=== PATIENT | female | born 1970 | race Caucasian/White ===

== ENCOUNTER 2017-01-19 20:59 | Emergency (ER) | payer OTHER ==
[~2017-01-19] VITALS: Ht 170.2 cm; Wt 100.0 kg
[~2017-01-19 20:59] MED LIST: ASPI-973 PO; DIAZ5TAB3 PO
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
[2017-01-19 21:14] VITALS: BP 135/91; PULSE 70; RESP 20; O2SAT 96
--- NOTE | 2017-01-19 21:14 | DRSVH ---
PROCEDURE: CT BRAIN (TPA) ([id number]) INDICATIONS: left side weakness, previous cva TECHNIQUE: Noncontrast 4.5 mm thick angled axial sections acquired from the foramen magnum to the vertex, with c oronal reformats. COMPARISON: None. FINDINGS: Image quality: Excellent. CSF spaces: Basal cisterns are patent. No extra-axial fluid collections. Ventricles are normal in size and shape. Brain: No midline shift. No intracranial masses or hemorrhage. Mccullough-white matter interface is norm al. Skull and face: Calvarium and visualized facial bones are intact, without suspicious lesions. Sinuses: Visualized sinuses and mastoids are clear. IMPRESSION: 1. No acute intracranial findings. These findings were discussed with Dr. Farfan at 9:12 PM on 01/19/17. This study fulfills neurological imaging criteria for inclusion or exclusion of acute stroke therapie s based on available published neurological imaging guidelines. Dictated by: Belinda Pina M.D. on 01/19/2017 at 21:09 Approved by: Belinda Pina M.D. on 01/19/2017 at 21:12
[2017-01-19] MEDS ORDERED: Alteplase (No Charge) 1 mg/mL Syringe IV ONE (21:55)
[2017-01-19] MEDS ORDERED: ALTEPLASE IV ONE (21:55)
[2017-01-19] MEDS ORDERED: Acetaminophen IV 1,000 MG in IV Premix 1 EACH IV ONE (22:10)
[2017-01-19 22:16] LABS: BASOPHILS % (AUTO) 0.5 % (0-3); MONOCYTES % (AUTO) 10.8 % (4-12); Mean Corpuscular Hemoglobin 29.7 pg (27.0-35.0); Mean Corpuscular Volume 89.3 fL (81-100); NEUTROPHILS % (AUTO) 55.7 % (40-74); Platelet Count 289 bil/L (150-400)
[2017-01-19 22:23] LABS: INR 0.9 ratio
[2017-01-19 22:51] VITALS: BP 144/77; PULSE 66; RESP 18; O2SAT 97
[2017-01-19 23:02] VITALS: BP 144/77; PULSE 72; RESP 20; O2SAT 98
== END 2017-01-19 22:55 | disposition short-term general hospital (02) ==
LOC: SED 20:59
DX: I63.511 Cerebral infarction due to unspecified occlusion or stenosis of right middle cerebral artery (principal); I10 Essential (primary) hypertension; Z86.73 Personal history of transient ischemic attack (TIA), and cerebral infarction without residual deficits; Z79.82 Long term (current) use of aspirin; Z95.0 Presence of cardiac pacemaker; Z88.0 Allergy status to penicillin; Z88.8 Allergy status to other drugs, medicaments and biological substances
CPT/HCPCS: 36415; 37195; 70450; 80053; 84484; 85025; 85610; 85730; 86850; 93005; 96374; 96375; 99291; G0480; J0131; J2997

== ENCOUNTER 2017-03-19 14:20 | Inpatient (IN) | payer OTHER ==
[2017-03-19] VITALS (9 sets, daily range): BP systolic 122–144; BP diastolic 70–87; PULSE 60–86; RESP 15–24; O2SAT 96–99
[~2017-03-19] VITALS: Ht 167.6 cm; Wt 128.1 kg
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
[2017-03-19] MEDS ORDERED: HYDROmorphone 0.5 mg/0.5 mL iSecure Syringe IVPUSH ONE (14:35)
[2017-03-19] MEDS ORDERED: Ondansetron 2 mg/mL 2 mL Inj IVPUSH ONE (14:35)
[2017-03-19 14:46] LABS: BASOPHILS % (AUTO) 0.3 % (0-3); EOSINOPHILS % (AUTO) 2.8 % (0-5); Mean Corpuscular Hemoglobin 29.6 pg (27.0-35.0); Mean Corpuscular Volume 89.8 fL (81-100); NEUTROPHILS % (AUTO) 60.4 % (40-74); Platelet Count 280 bil/L (150-400)
--- NOTE | 2017-03-19 14:51 | DRSVH ---
PROCEDURE: X-RAY CHEST ONE VIEW, PORTABLE ([id number]) INDICATIONS: CHEST PAIN TECHNIQUE: One view of the chest was acquired. COMPARISON: [facility], , CHEST 1VW (PORTABLE), 06/02/2014, 15:50. FINDINGS: Surgical changes and devices: Cardiac pacer/defibrillator brevis is seen overlying the left chest. Lungs and pleura: No pleural effusions or pneumothorax. Lungs are clear. Mediastinum: Mediastinal contours appear normal. Heart size is normal. Bones and chest wall: No suspicious bony lesions. Overlying soft tissues appear unremarkable. IMPRESSION: Negative chest. No acute cardiopulmonary process is evident. Dictated by: Eduardo Regalado M.D. on 03/19/2017 at 13:49 Approved by: Eduardo Regalado M.D. on 03/19/2017 at 13:49
[2017-03-19 15:17] LABS: TROPONIN T < 0.010 ug/L (0.0-0.011)
[2017-03-19 15:22] LABS: Magnesium 1.9 mg/dL (1.6-2.6)
[2017-03-19] MEDS ORDERED: HYG25 PO (15:58)
[2017-03-19] MEDS ORDERED: AMLO5TAB2 PO (15:58)
[2017-03-19] MEDS ORDERED: TOPI-59 PO (15:58)
[2017-03-19] MEDS ORDERED: Ondansetron 2 mg/mL 2 mL Inj IVPUSH PRN (16:30)
[2017-03-19] MEDS ORDERED: Alum-Mag Hydrox-Simeth 30 mL Suspension PO PRN ×2 (16:30→16:50)
[2017-03-19] MEDS ORDERED: Polyethylene Glycol (PEG) 17 Gm Powder PO PRN (16:50)
--- NOTE | 2017-03-19 17:41 | NUR ---
Admission Patient admitted to the floor at 1650. Admit questions and med list accomplished by admit nurse. Patient complained of 6/10 chest pain more so when patient breaths. EKG, Trops, X-ray, D-dimer all neg. DO ordered Pulse Ox overnight for screening for ADRYAN. Oriented patient to the room, placed bed in lowest position and call light within reach.
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
[2017-03-20] VITALS (8 sets, daily range): BP systolic 119–158; BP diastolic 75–99; PULSE 60–64; RESP 16–22; O2SAT 94–97
[2017-03-20] MEDS: Heparin 5,000 Unit/mL Inj SUBQ SCH ×3 (00:20→16:47)
[2017-03-20 02:08] LABS: Mean Corpuscular Hemoglobin 29.7 pg (27.0-35.0); Mean Corpuscular Volume 90.3 fL (81-100)
[2017-03-20 02:25] LABS: INR 0.95 ratio
--- NOTE | 2017-03-20 04:19 | NUR ---
PAIN At start of shift, pt c/o "7" chest pain at rest, "9" with activity. Pt states tenderness to touch. Pt states that tylenol is not effective for pain relief. Pt currently did not have any prn pain medications ordered. Noc hospitalist called, rec'd orders for prn IV morphine, dose given. When reassessed, pt states pain in chest "is better", pt rates chest pain "4". Continue to monitor. Call light in reach. Pt daughter in room. Intentional rounding.
[2017-03-20] MEDS: Ondansetron 2 mg/mL 2 mL Inj IVPUSH PRN (08:28)
--- NOTE | 2017-03-20 16:36 | PCM.PNMED ---
Subjective Date of Service Mar 20, 2017 Subjective complains of headache today. Also reports chest pain when walking to bathroom but improves with rest Exam Vital Signs Vital Sign - Last Date Time Temp Pulse Resp B/P Pulse Ox O2 Delivery O2 Flow Rate FiO2 03/20/17 13:08 36.8 64 17 142/86 94 Room Air Intake and Output 03/19/17 03/19/17 03/20/17 Cumulative From/Thru 15:00 23:00 07:00 03/19/17 14:24 - 03/20/17 06:34 Intake Total 450 ml 450 ml Output Total 1050 ml 1050 ml Balance -600 ml -600 ml Intake Oral 450 ml 450 ml Output Urine Total 1050 ml 1050 ml General: Alert, Cooperative, No Acute Distress Head: Normal Eyes: Scleral Anicteric Nose: Mucous Membr Moist/[place] Mouth: Mucous Membr Moist/[place] Neck: Supple Chest & Lungs: Chest Wall Normal, Clear to auscultation & percussion Cardiovascular: Regular Rate/Rhythm Abdomen: Non-tender, Non-distended, Normoactive bowel tones, Soft Extremities: No cyanosis/clubbing/edma bilat Neurological: Grossly Neurologically Intact, Normal Speech IVs and Medications Medications Reviewed: Medications were reviewed in detail Lab and Diagnostics Result Diagram: 03/20/17 02003/20/17 0200 X-Rays, CTs and MRIs PROCEDURE: X-RAY CHEST ONE VIEW, PORTABLE ([id number]) INDICATIONS: CHEST PAIN IMPRESSION: Negative chest. No acute cardiopulmonary process is evident. Dictated by: Eduardo Regalado M.D. on 03/19/2017 at 13:49 Assessment & Plan 46-year-old obese female with a medical history significant for CVA, TIA, valvular heart disease, and bradycardia with pacer presented with acute chest pain # Acute chest pain. Present on admission. - Ruled out for acute myocardial infarction with negative Trop x 3 - EKG without acute ST changes - Followup pending echo result - Followup pending cardiac stress test - ? if chest pain partially due to musculoskeletal pain given somewhat reproducible with palpation. Will start Ibuprofen and follow - Continue with ASA and Lipitor - Continue IV Morphine prn # Chronic Hypertension. Stable. - Continue with home dose Amlodipine and Chlorthalidone - Consider adding lisinopril # Probable sleep apnea - Will need further workup as outpatient # Acute headache. Present after admission. Ongoing - ? if side effect of Nitro or Morphine - Continue with supportive care - Tylenol prn for now # History of CVA/TIA. Currently stable - Continue with home meds Dispo: 1-2 days pending above workup GI Prophylaxis: Not indicated VTE Prophylaxis: Sub-Q Heparin (Unfractionated) VTE Mechanical Devices: Intermittant Pneumatic CD Resuscitation Status: CPR: Attempt Resuscitation Johnny Romero Mar 20, 2017 16:36
--- NOTE | 2017-03-20 18:08 | DRSVH ---
[facility] [address] [facility] [facility] [place] [address] Echocardiogram Report Name: JIM SIEGEL LStudy Date: 03/20/2017 Height: 66 in Hospital Exam Location: [facility] Weight: 282 lb Gender: Female BSA: 2.3 m2 : 1970 Age: 46 yrs BP: 122/75 mmHg Reason For Study: Chest pain History: PFO REPAIR Ordering Physician: Performed By: Maryjane Farley Interpretation Summary 1. Normal left ventricular size and wall thickness with an estimated EF of 45 to 50% 2. Upper limits of normal right ventricular size with normal systolic function. The estimated RVSP is 41 mm Hg 3. No evidence for significant valvular pathology 4. Evidence for a flow of bubbles into the left atrium at about 6 beats after injection - consider residual atrial septal communication versus pulmonary AVM Compared to the previous study (images reviewed) - the LV function may be slightly reduced. The estimated right atrial pressure is higher. Procedure: A two-dimensional transthoracic echocardiogram with color flow and Doppler was performed. The study quality was technically adequate. A contrast injection of Definity was performed to improve assessment of LV function. A saline contrast injection was performed to assess for cardiac shunting. Comparison is made with the echocardiogram of 03/12/2013. The patient has a paced rhythm. Left Ventricle: The left ventricle is normal in size. There is normal left ventricular wall thickness. The ejection fraction is estimated to be 45-50%. Right Ventricle: There is a pacemaker lead in the right ventricle. Upper limits of normal RV size. The right ventricular systolic function is normal. Atria: The left atrium is mildly dilated. Right atrial size is normal. The bubble study shows a flood of bubbles into the left heart 6 beats after injection. Possible PFO closure failure vs pulmonary AVM. Color Doppler does not suggest PFO; however, subcostal views were unobtainable due to lack of visualization of heart. Mitral Valve: The mitral valve is normal in structure and function. There is trace mitral regurgitation. Aortic Valve: The aortic valve is trileaflet. The aortic valve opens well. No aortic regurgitation is present. Tricuspid Valve: The tricuspid valve leaflets are thin and pliable. There is mild tricuspid regurgitation. The right ventricular systolic pressure is estimated at 41 mmHg assuming a right atrial pressure of 15 mm Hg. Pulmonic Valve: The pulmonic valve is not well seen, but is grossly normal. There is no pulmonic valvular regurgitation. Great Vessels: The aortic root is normal size. The ascending aorta is at the upper limits of normal in size. The aortic arch is at the upper limits of normal in size. The IVC is dilated (diameter is greater than 2.1 cm) and it collapses less than 50% with a sniff. This suggests a high right atrial pressure of 15 mm Hg. MMode/2D Measurements & Calculations LVIDd: 5.4 cm LA A2 area RA long axis: 5.9 cm LVOT diam: 2.2 cm LVIDs: 3.5 cm Ao root diam: 3.3 cm FS: 35.2 % RA area: 17.8 cm Aortic Jxn: 2.7 cm EPSS: 1.1 cm LA A4 area RA vol: 45.4 ml asc Aorta Diam: 3.4 cm IVSd: 0.82 cm RA : 19.6 ml/m2 Ao Arch Diam (Prox LVPWd LA length (vol) Trans): 3.2 cm : 1.0cm LA vol: 67.3 ml LA vol index IVC diam: 2.6 cm LVAd ap4 LVAd ap2 LV son. diameter/BSA LV sys. diameter/BSA : 29.7 2m : 22.4 cm (cm/m^2): 2.4 (cm/m^2): 1.5 LVLd ap2: 6.7 cm EDV(MOD-sp2) EDV(sp2-el) : 64.5 ml RVD1 (basal) RVD2 (mid) TAPSE: 2.5 cm : 3.2 cm Doppler Measurements & Calculations Ao V2 max MV E max yusuf MV E/A: 1.2 TR max yusuf : 143.5 cm/sec : 89.9 cm/sec Med Peak E' Yusuf : 252.6 cm/sec Ao max PG MV A max yusuf TR max PG : 8.2 mmHg : 76.1 cm/sec E/E' med: 12.8 : 25.5 mmHg Ao mean PG MV P1/2t: 60.8 msec Lat Peak E' Yusuf PA V2 max : 63.6 cm/sec LVOT Max Yusuf E/E' lat: 10.3 PA mean PG : 86.3 cm/sec E/e' average : 0.84 mmHg ERICA(I,D): 2.6 cm PA Accel Time sev ratio : 0.16 sec MV dec time MV P1/2t max yusuf Ao V2 mean LV V1 max PG : 0.21 sec : 89.2 cm/sec MVA(P1/2t): 3.6 cm2 Ao V2 VTI: 30.1 cm LV V1 VTI ERICA(V,D): 2.2 cm2 : 21.5 cm PA V2 mean ERICA indexed to BSA : 42.7 cm/sec (cm^2/m^2): 1.1 Reading Physician:06:07 PM
[2017-03-21] VITALS (11 sets, daily range): BP systolic 108–158; BP diastolic 63–89; PULSE 60–73; RESP 16–22; O2SAT 94–100
[2017-03-21] MEDS: Heparin 5,000 Unit/mL Inj SUBQ SCH ×3 (00:58→16:51)
--- NOTE | 2017-03-21 05:21 | NUR ---
PAIN Pt continues to have pain. Chest pain, increased w/ activity. Pt primarily reports headache pain. PRN tylenol and ibuprofen helps to alleviate pain. Pt avoiding IV morphine, as it contributes to headache. Pt tolerating activity to BR better than previous night. Continue to monitor. Call light in reach. Intentional rounding.
--- NOTE | 2017-03-21 09:10 | NUR ---
Off unit: Pt off unit for stress test at 0830
--- NOTE | 2017-03-21 10:57 | NUR ---
Social Work- Screening/Readiness for D/C Data: EMR reviewed. Pt is a 46 year old female admitted for chest pain per H&P. Pt's insurance is [employer]. Pt's PCP is listed as Other. Pt discussed in multidisciplinary rounds. Pt is likely to d/c today pending stress test. No SW needs identified in rounds. SW attempted to meet with pt at bedside regarding d/c planning but she was off the floor for her stress test. Per chart review pt is independent at baseline and capable of self-care. No concerns related to pt's capacity for self-care mentioned in rounds. Pt likely to d/c home with family via POV. No d/c needs. SW will follow if d/c needs arise. Assessment: Pt who is independent with ADLs and self-care Plan: Pt likely to d/c home with family via POV. No d/c needs. SW will follow if d/c needs arise. Lyric Johnson, PHARMACIST
[2017-03-21] MEDS: Ondansetron 2 mg/mL 2 mL Inj IVPUSH PRN (11:24)
--- NOTE | 2017-03-21 15:51 | NUR ---
NURSING DAYS 7-7 Patient failed am stress test, became dizzy, n/v, diaphoretic, and BP fell to "double digits". Patient will do resting image stress test tomorrow at 1000, NPO at midnight, no caffeine. Patient c/o headache Tylenol and Ibuprofen given, patient state she has slight chest pain on trip to bathroom, "not feeling herself" and has hot/cold flashes, made aware. Trop (-), telemetry A-paced 60,
--- NOTE | 2017-03-21 17:36 | PCM.PNMED ---
Subjective Date of Service Mar 21, 2017 Subjective Reports feeling "worse" after stress test earlier today. complains of headache. Also chest pain when walking to bathroom Exam Vital Signs Vital Sign - Last Date Time Temp Pulse Resp B/P Pulse Ox O2 Delivery O2 Flow Rate FiO2 03/21/17 16:57 36.7 60 16 125/85 96 Room Air Intake and Output 03/20/17 03/20/17 03/21/17 Cumulative From/Thru 15:00 23:00 07:00 03/19/17 14:24 - 03/21/17 05:46 Intake Total 2127 ml 200 ml 2777 ml Output Total 1850 ml 650 ml 3550 ml Balance 277 ml -450 ml -773 ml Intake Oral 900 ml 200 ml 1550 ml IV Total 1227 ml 1227 ml Output Urine Total 1850 ml 650 ml 3550 ml # Voids 4 1 5 Exam General: Alert, Cooperative, No Acute Distress Head: Normal Eyes: Scleral Anicteric Nose: Mucous Membr Moist/[place] Mouth: Mucous Membr Moist/[place] Neck: Supple Chest & Lungs: Chest Wall Normal, Clear to auscultation bilat Cardiovascular: Regular Rate/Rhythm Abdomen: Non-tender, Non-distended, Normoactive bowel tones, Soft Extremities: No cyanosis/clubbing/edema bilat Neurological: Grossly Neurologically Intact, Normal Speech IVs and Medications Medications Reviewed: Medications were reviewed in detail Lab and Diagnostics Result Diagram: 03/20/17 0200 03/20/17 0200 X-Rays, CTs and MRIs PROCEDURE: X-RAY CHEST ONE VIEW, PORTABLE ([id number]) INDICATIONS: CHEST PAIN IMPRESSION: Negative chest. No acute cardiopulmonary process is evident. Dictated by: Eduardo Regalado M.D. on 03/19/2017 at 13:49 Assessment & Plan 46-year-old obese female with a medical history significant for CVA, TIA, valvular heart disease, and bradycardia with pacer presented with acute chest pain # Acute chest pain. Present on admission. - Ruled out for acute myocardial infarction with negative Trop x 3 - EKG without acute ST changes - Echo with findings as noted above - Followup pending cardiac stress test result - ? if chest pain partially due to musculoskeletal pain given somewhat reproducible with palpation. Continue Ibuprofen = - Continue with ASA and Lipitor - Continue IV Morphine prn - Consider cardiology consult in AM pending final stress test result. # Chronic Hypertension. Stable. - Continue with home dose Amlodipine and Chlorthalidone - Consider adding lisinopril # Probable sleep apnea - Will need further workup as outpatient # Acute headache. Present after admission. Ongoing - ? if side effect of Nitro or Morphine - Continue with supportive care - Tylenol prn for now # History of CVA/TIA. Currently stable - Continue with home meds Dispo: 1-2 days pending above workup GI Prophylaxis: Not indicated VTE Prophylaxis: Sub-Q Heparin (Unfractionated) VTE Mechanical Devices: Intermittant Pneumatic CD Resuscitation Status: CPR: Attempt Resuscitation Johnny Romero Mar 21, 2017 17:35
--- NOTE | 2017-03-21 23:52 | NUR ---
Chest pressure: Pt reported feeling like someone was "sitting on my chest" while up to the bathroom. Reports shortness of breath "due to the pain" and some dizziness so pt was placed on 2L NC; RA pt was 97%. Denies nausea. Reports headache she had earlier is gone. Pain was at a 7/10, after resting in bed it decreased to 5/10 without intervention. EKG was obtained and IV medication administered for the chest pain. The chest pain gradually subsided, gone 35-40 minutes after medication given. 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
[2017-03-22] VITALS (8 sets, daily range): BP systolic 114–148; BP diastolic 68–83; PULSE 60–67; RESP 16–20; O2SAT 96–99
[2017-03-22] MEDS: Heparin 5,000 Unit/mL Inj SUBQ SCH ×3 (01:20→16:25)
[2017-03-22 07:11] LABS: Magnesium 1.9 mg/dL (1.6-2.6)
--- NOTE | 2017-03-22 08:36 | NUR ---
CORTEZ/off unit Pt off unit at this time for resting stress test. Medicated with IV morphine for CORTEZ 02/01 prior to leaving. Tele notified of pt leaving. IV is SL. Addendum: 03/22/17 at 0901 by AMAN DELGADO RN Pt back on unit now. states CORTEZ to be a 11/02 now. Tele monitoring in place, tech notified
--- NOTE | 2017-03-22 10:04 | PCM.PNMED ---
Subjective Date of Service Mar 22, 2017 Subjective Says feeling better today. Denies any new issues/complaints Exam Vital Signs Vital Sign - Last Date Time Temp Pulse Resp B/P Pulse Ox O2 Delivery O2 Flow Rate FiO2 03/22/17 09:36 36.7 60 20 117/83 98 Room Air 03/22/17 00:39 2.00 Intake and Output 03/21/17 03/21/17 03/22/17 Cumulative From/Thru 15:00 23:00 07:00 03/19/17 14:24 - 03/22/17 04:42 Intake Total 886 ml 3663 ml Output Total 925 ml 4475 ml Balance -39 ml -812 ml Intake Oral 886 ml 2436 ml IV Total 1227 ml Output Urine Total 925 ml 4475 ml # Voids 5 Exam General: Alert, Cooperative, No Acute Distress Head: Normal Eyes: Scleral Anicteric Nose: Mucous Membr Moist/[place] Mouth: Mucous Membr Moist/[place] Neck: Supple Chest & Lungs: Chest Wall Normal, Clear to auscultation bilat Cardiovascular: Regular Rate/Rhythm Abdomen: Non-tender, Non-distended, Normoactive bowel tones, Soft Extremities: No cyanosis/clubbing/edema bilat Neurological: Grossly Neurologically Intact, Normal Speech IVs and Medications Medications Reviewed: Medications were reviewed in detail Lab and Diagnostics Result Diagram: 03/20/17 0200 03/22/17 0630 X-Rays, CTs and MRIs PROCEDURE: X-RAY CHEST ONE VIEW, PORTABLE ([id number]) INDICATIONS: CHEST PAIN IMPRESSION: Negative chest. No acute cardiopulmonary process is evident. Dictated by: Eduardo Regalado M.D. on 03/19/2017 at 13:49 Assessment & Plan 46-year-old obese female with a medical history significant for CVA, TIA, valvular heart disease, and bradycardia with pacer presented with acute chest pain # Acute chest pain. Present on admission. - Ruled out for acute myocardial infarction with negative Trop x 3 - EKG without acute ST changes - Echo with findings as noted above - Followup pending cardiac stress test result today - ? if chest pain partially due to musculoskeletal pain given somewhat reproducible with palpation. Continue Ibuprofen - Continue with ASA and Lipitor - Continue IV Morphine prn - Cardiology consult today for consideration of cath vs other intervention given ongoing chest pain with exertion # Chronic Hypertension. Stable. - Continue with home dose Amlodipine and Chlorthalidone - Consider adding lisinopril # Probable sleep apnea - Will need further workup as outpatient # Acute headache. Present after admission. Improving. - ? if side effect of Nitro or Morphine - Continue with supportive care - Tylenol prn for now # History of CVA/TIA. Currently stable - Continue with home meds Dispo: 1-2 days pending above workup GI Prophylaxis: Not indicated VTE Prophylaxis: Sub-Q Heparin (Unfractionated) VTE Mechanical Devices: Venous Foot Pump Resuscitation Status: CPR: Attempt Resuscitation Johnny Romero Mar 22, 2017 10:04
--- NOTE | 2017-03-22 10:57 | DRSVH ---
PROCEDURE: 2 DAY STRESS TEST Rest and pharmacological stress myocardial perfusion SPECT with gated imaging and ejection fraction RADIOPHARMACEUTICAL: 21.9 mCi Tc-99m tetrafosmin IV at rest and 21.7 mCi Tc-99m tetrafosmin IV at pea k effect of pharmacological stress. [id number] was performed. INDICATIONS: 46 year-old woman with chest pain. The patient has history of hypertension, hyperkalemia and a valvular heart disease. TECHNIQUE: Radiopharmaceutical was injected at peak stress test, and also at rest. SPECT images wer e obtained. SPECT myocardial perfusion images were displayed in short axis, horizontal long axis, an d vertical long axis views. Gated images were reviewed using [employer] software. COMPARISON: [facility], [place], MYOCARD PERF SPECT MULT, 12/26/2009, 13:58. CARDIAC STRESS: A pharmacologic stress test was performed under the supervision of an attending staff, using an infus ion of Lexiscan. Hemodynamic data: There is normal blood pressure and heart rate response to pharmacologic stress. Symptoms: The patient denied anginal chest pain. Aminophylline: 100 mg IV EKG: Nonspecific ST changes. No diagnostic changes of ischemia; no ectopy. FINDINGS: Raw data: There is good myocardial uptake of radiotracer. No significant motion artifacts. Left ventricle function: Gated images demonstrate normal left ventricular wall thickening. No segme ntal wall motion abnormalities. No transient ischemic dilation. Left ventricle resting end diastoli c volume is normal. Left ventricle stress ejection fraction is 54%; normal range is above 45%. Myocardial perfusion: There is a small, mild, fixed defect in the apex, most likely secondary to api rodríguez thinning. There is a large area of mildly decreased activity in anterior wall, which is probably caused by breast attenuation artifact. No reversible perfusion defects to suggest myocardial ischemia . Comparison to prior examinations: Compared to the last exam on 12/27/2009, there is no significant bell nge. IMPRESSION: 1. Probably normal myocardial perfusion images. No convincing evidence for myocardial ischemia or inf arct. 2. Normal left ventricular volume and systolic function. 3. No chest pain or diagnostic EKG changes for ischemia. PQRS ATTESTATIONS: Measure 322 - Is this imaging test primarily performed on a low-risk surgery patient for preoperative evaluation within 30 days preceding their low-risk non-cardiac surgery? Low-risk surgery is defined as cardiac or myocardial infarction less than 1%, including (but not limited to) endoscopic pr ocedures, superficial procedures, cataract surgery, and excisional breast surgery: Answer: No Measure 323 - Is this imaging test performed primarily for the monitoring of an asymptomatic patient who had percutaneous coronary intervention on the visit date or within 2 years of the visit date? An swer: No Measure 324 - Is this imaging test performed primarily for the initial detection and risk assessment on an asymptomatic, low coronary heart disease patient? Low CHD risk definition = clinicians should consider the maximum number of available patient factors used to estimate risk based on [place] (A TP III criteria), typically age, gender, diabetes, smoking status, and use of blood pressure medicati on, and integrate age appropriate estimates for missing elements, such as LDL or standard blood press ure. Answer: No Dictated by: Jeremy Zheng M.D. on 03/22/2017 at 10:42 Approved by: Jeremy Zheng M.D. on 03/22/2017 at 10:55
--- NOTE | 2017-03-22 13:15 | NUR ---
CT pt off unit at [address] for PE study. Pt denied pain. Tele notified. Addendum: 03/22/17 at 1838 by AMAN DELGADO RN Pt was back by 1330, connected back to tele.
--- NOTE | 2017-03-22 13:32 | DRSVH ---
PROCEDURE: CT ANGIO CHEST PULMONARY EMBOLISM ([id number]) INDICATIONS: Chest pain, SOB, leg swelling, hx DVT TECHNIQUE: After the administration of intravenous contrast, 2 mm thick sections acquired from the pulmonary api ginny to the posterior costophrenic angles. 3-dimensional maximum intensity projection (MIP) coronal a nd sagittal reformats were then acquired through the thorax. For radiation dose reduction, the follo wing was used: automated exposure control, adjustment of mA and/or kV according to patient size. COMPARISON: [facility], [place], CHEST W/O CONTRAST, 05/19/2007, 19:39. FINDINGS: Image quality: Excellent. Pulmonary arteries: Pulmonary arteries are normal in size, and demonstrate no intraluminal filling d efects to suggest central pulmonary embolism. Lungs and pleura: No pleural effusions or pneumothorax. Central and peripheral airways are patent. 5 mm anterior right upper lobe nodule is present on series 5 image 8. It is noted that it was present on the 05/19/07 exam, at which time it measured 2 mm. Mediastinum: Heart size is normal, without pericardial effusion. No mediastinal or hilar adenopathy . Thoracic aorta is normal in caliber and enhancement. Esophagus is normal in caliber, without hiat al hernia. Bones and chest wall: No suspicious bony lesions. Ribs and thoracic spine appear intact throughout. Thyroid gland is unremarkable. No axillary or supraclavicular adenopathy. Abdomen: Left adrenal nodule is unchanged. Otherwise, visualized upper abdominal solid organs appear normal in the early arterial phase of enhancement. IMPRESSION: 1. No evidence of pulmonary embolism. 2. 5 mm nodule in the right upper lobe as described above. It is noted that it has increased in size since 2006. Given the slow rate of growth, neoplasm is felt to be highly unlikely. However, one year interval followup is recommended. Dictated by: Mansi Khoury M.D. on 03/22/2017 at 13:23 Approved by: Mansi Khoury M.D. on 03/22/2017 at 13:30
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
[2017-03-22] MEDS ORDERED: Ketorolac 15 mg/mL Inj IVPUSH ONE (16:35)
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
--- NOTE | 2017-03-22 18:38 | DRSVH ---
PROCEDURE: US VENOUS LEG DUPLEX BILATERAL INDICATIONS: Right and left leg pain, left leg swelling. R/O DV TECHNIQUE: Real-time imaging, as well as color and pulse Doppler interrogation, were performed of the deep veins of both legs from the inguinal ligament to the popliteal fossa. COMPARISON: None. FINDINGS: The deep veins are normally compressible, and free of intraluminal thrombus. Color and pu lse Doppler demonstrate normal phasic intravascular flow. There is normal augmentation response to d istal compression maneuver. IMPRESSION: No deep vein thrombosis of the bilateral lower extremities. Dictated by: Belinda Pina M.D. on 03/22/2017 at 18:36 Approved by: Belinda Pina M.D. on 03/22/2017 at 18:36
--- NOTE | 2017-03-22 18:38 | NUR ---
Pain meds Pt states the 1x IV Toradol was more effective than IV Morphine. Note sent to MD to possibly get the Rx changed.
[2017-03-22] MEDS ORDERED: Ketorolac 15 mg/mL Inj IVPUSH PRN (18:55)
[2017-03-23] MEDS: Heparin 5,000 Unit/mL Inj SUBQ SCH ×2 (01:18→08:30)
[2017-03-23 01:22] VITALS: BP 112/71; PULSE 60; RESP 16; O2SAT 95
[2017-03-23 05:06] VITALS: BP 115/72; PULSE 61; RESP 16; O2SAT 98
--- NOTE | 2017-03-23 06:29 | NUR ---
Night note: No chest pain through the night. Was medicated once this morning for a head ache. Was able to sleep most of the night.
[2017-03-23 08:16] VITALS: BP 112/77; PULSE 60; RESP 16; O2SAT 96
--- NOTE | 2017-03-23 11:14 | PCM.DIMED ---
Discharge Instructions Date of Service Mar 23, 2017 Dates of Hospitalization Mar 19, 2017 at 16:09 Discharge Diagnosis Discharge Diagnosis # Acute chest pain. Present on admission. Resolved - Ruled out for acute myocardial infarction with negative Trop x 3 - Cardiac stress test on 03/21/17: "Probably normal myocardial perfusion images. No convincing evidence for myocardial ischemia or infarct." - Chest pain likely due to musculoskeletal pain # Chronic Hypertension. Stable. # Possible sleep apnea - Will need further workup as outpatient # Acute headache. Present after admission. Resolved # History of CVA/TIA. Currently stable # History of PFO closure but echocardiogram on 03/20/17 showing: "Evidence for a flow of bubbles into the left atrium at about 6 beats after injection - consider residual atrial septal communication versus pulmonary AVM." Medication Instructions Additional med instructions Resume home medications as before Diet Discharge Diet: Low fat, Low Sodium, Heart Healthy Activity Discharge Activity: No restrictions Call your provider Call your provider for: Fever or Chills, Shortness of breath, Bleeding, Chest pain, Weakness (unilateral) Patient Instructions Patient Instructions Seek immediate medical attention if any new or worsening signs or symptoms occur. Follow-up plan 1. Followup with primary care provider later this week 2. Followup with your medical certification specialist to address the echocardiogram findings during this hospital as soon as possible. Johnny Romero Mar 23, 2017 11:14
--- NOTE | 2017-03-23 11:21 | PCM.DC.MED ---
Discharge Summary Date of Service Mar 23, 2017 Dates of Hospitalization Date of Hospital Admission Mar 19, 2017 at 16:09 Date of Discharge: Mar 23, 2017 Providers: Admitting Physician: Johnny Romero Primary Care Physician: Other,Physician Attending Physician: Johnny Romero Diagnosis at Time of Discharge Diagnosis at Time of Discharge # Acute chest pain. Present on admission. Resolved - Ruled out for acute myocardial infarction with negative Trop x 3 - Cardiac stress test on 03/21/17: "Probably normal myocardial perfusion images. No convincing evidence for myocardial ischemia or infarct." - Chest pain likely due to musculoskeletal pain # Chronic Hypertension. Stable. # Possible sleep apnea - Will need further workup as outpatient # Acute headache. Present after admission. Resolved # History of CVA/TIA. Currently stable # History of PFO closure but echocardiogram on 03/20/17 showing: "Evidence for a flow of bubbles into the left atrium at about 6 beats after injection - consider residual atrial septal communication versus pulmonary AVM. Procedures XRay, CTs & MRIs PROCEDURE: X-RAY CHEST ONE VIEW, PORTABLE ([id number]) INDICATIONS: CHEST PAIN IMPRESSION: Negative chest. No acute cardiopulmonary process is evident. Dictated by: Eduardo Regalado M.D. on 03/19/2017 at 13:49 Date of Service: 03/22/17 1145 PROCEDURE: CT ANGIO CHEST PULMONARY EMBOLISM ([id number]) IMPRESSION: 1. No evidence of pulmonary embolism. 2. 5 mm nodule in the right upper lobe as described above. It is noted that it has increased in size since 2006. Given the slow rate of growth, neoplasm is felt to be highly unlikely. However, one year interval followup is recommended. Dictated by: Mansi Khoury M.D. on 03/22/2017 at 13:23 Approved by: Mansi Khoury M.D. on 03/22/2017 at 13:30 Date of Service: 03/22/17 1203 PROCEDURE: US VENOUS LEG DUPLEX BILATERAL IMPRESSION: No deep vein thrombosis of the bilateral lower extremities. Dictated by: Belinda Pina M.D. on 03/22/2017 at 18:36 Approved by: Belinda Pina M.D. on 03/22/2017 at 18:36 Cardiac Echo Impression Date of Service: 03/20/17 191 Echocardiogram Report Interpretation Summary 1. Normal left ventricular size and wall thickness with an estimated EF of 45 to 50% 2. Upper limits of normal right ventricular size with normal systolic function. The estimated RVSP is 41 mm Hg 3. No evidence for significant valvular pathology 4. Evidence for a flow of bubbles into the left atrium at about 6 beats after injection - consider residual atrial septal communication versus pulmonary AVM Compared to the previous study (images reviewed) - the LV function may be slightly reduced. The estimated right atrial pressure is higher. Reading Physician:06:07 PM Other Diagnostics Date of Service: 03/21/17 1000 PROCEDURE: 2 DAY STRESS TEST Rest and pharmacological stress myocardial perfusion SPECT with gated imaging and ejection fraction IMPRESSION: 1. Probably normal myocardial perfusion images. No convincing evidence for myocardial ischemia or infarct. 2. Normal left ventricular volume and systolic function. 3. No chest pain or diagnostic EKG changes for ischemia. Dictated by: Jeremy Zheng M.D. on 03/22/2017 at 10:42 Approved by: Jeremy Zheng M.D. on 03/22/2017 at 10:55 Brief History As noted in H&P by Dr. Monroe: Per patient, she reports around 1350 today, started to have significant crushing chest pain 10/10 radiating to the left hand and jaw with associated symptoms of diaphoretic and shortness of breath. No palpitation, syncopal episode, nausea, or vomiting. Pain unabated by rest. 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 Patient thus drove herself to the ED for further evaluation. While in the ED, her chest pain seems to resolve with the administration of nitroglycerin after 5 minutes. Her chest pain is currently 4/10, constant, no shortness of breath, or lightheadedness, dizziness. Patient does states mild bilateral headaches however. In the ED, patient blood pressure is 126/76, heart rate 80, respiratory 18 pulse oximetry 98% on room air. Patient's lab CBC unremarkable, CMP also unremarkable, troponin is less than 0.01. D-dimer less than 0.5, x-rays unremarkable for any acute findings, and EKG normal sinus, no ST elevation. Patient admitted onto the floor for observation given heart risk score 5. Hospital Course # Acute chest pain. Present on admission. - Ruled out for acute myocardial infarction with negative Trop x 3 - EKG without acute ST changes - Echo with findings as noted above - Stress test negative - ? if chest pain partially due to musculoskeletal pain given somewhat reproducible with palpation. Continued Ibuprofen - Continued with ASA and Lipitor - Cardiology consulted who ordered CTA and LE U/S both of which were negative. Impression is that this is likely musculoskeletal pain - By day of discharge patient ambulated the hallway without any further report of chest pain or symptoms. She is eager to go home. # Chronic Hypertension. Stable. - Continued with home dose Amlodipine and Chlorthalidone # Probable sleep apnea - Will need further workup as outpatient # Acute headache. Present after admission. Resolved. - ? if side effect of Nitro or Morphine - Continued with supportive care # History of CVA/TIA. Currently stable - Continue with home meds # History of PFO closure but echocardiogram on 03/20/17 showing: "Evidence for a flow of bubbles into the left atrium at about 6 beats after injection - consider residual atrial septal communication versus pulmonary AVM. - She plans to followup with her own gold leaf laborer at to address echo findings Exam Vital Signs (Last) Date Time Temp Pulse Resp B/P Pulse Ox O2 Delivery O2 Flow Rate FiO2 03/23/17 08:16 36.7 60 16 112/77 96 Room Air 03/22/17 00:39 2.00 Exam General: Alert, Cooperative, No Acute Distress Head: Normal Eyes: Scleral Anicteric Nose: Mucous Membr Moist/[place] Mouth: Mucous Membr Moist/[place] Neck: Supple Chest & Lungs: Chest Wall Normal, Clear to auscultation bilat Cardiovascular: Regular Rate/Rhythm Abdomen: Non-tender, Non-distended, Normoactive bowel tones, Soft Extremities: No cyanosis/clubbing/edema bilat Neurological: Grossly Neurologically Intact, Normal Speech Test 03/19/17 14:32 03/20/17 02:00 03/22/17 06:30 Neutrophils (%) (Auto) 60.4% (40-74) Lymphocytes (%) (Auto) 28.4% (14-46) Monocytes (%) (Auto) 8.0% (4-12) Eosinophils (%) (Auto) 2.8% (0-5) Basophils (%) (Auto) 0.3% (0-3) D-Dimer < 0.50mg/L FEU (<0.50) Hemoglobin A1c 5.7% (4.8-5.6) Total Bilirubin 0.2mg/dL (0.0-1.2) Aspartate Amino Transf (AST/SGOT) 24U/L (0-50) Alanine Aminotransferase (ALT/SGPT) 20U/L (0-32) Alkaline Phosphatase 50U/L (25-150) Total Protein 7.6g/dL (6.4-8.4) Albumin 4.6g/dL (3.4-5.0) White Blood Count 5.5th/mm3 (3.8-10.1) Red Blood Count 3.90mil/mm3 (3.90-5.20) Hemoglobin 11.6g/dL (12.0-15.6) Hematocrit 35.2% (35.0-46.0) Mean Corpuscular Volume 90.3fL (81-100) Mean Corpuscular Hemoglobin 29.7pg (27.0-35.0) Mean Corpuscular Hemoglobin Concent 33.0% (32.0-37.0) Red Cell Distribution Width 14.9% (12.3-15.4) Platelet Count 235bil/L (150-400) Prothrombin Time 10.2sec (8.1-12.5) Prothromb Time International Ratio 0.95ratio Activated Partial Thromboplast Time 24.3sec (22.8-33.0) Troponin T 0.010ug/L (0.0-0.011) Triglycerides Level 97mg/dL (0-149) Cholesterol Level 149mg/dL (100-199) LDL Cholesterol, Calculated 86.600mg/dL (0-99) VLDL Cholesterol 19.400mg/dL HDL Cholesterol 43mg/dL (>39) Cholesterol/HDL Ratio 3.47 (0.0-4.4) Sodium Level 143mEq/L (134-144) Potassium Level 3.9mEq/L (3.5-5.2) Chloride Level 105mEq/L (97-108) Carbon Dioxide Level 23mmol/L (18-29) Blood Urea Nitrogen 22mg/dL (6-24) Creatinine 0.69mg/dL (0.57-1.00) Estimat Glomerular Filtration Rate 131mL/min (>59) Glucose Level 102mg/dL (60-99) Calcium Level 9.6mg/dL (8.5-10.1) Magnesium Level 1.9mg/dL (1.6-2.6) Discharge Medications Discharge Medications Amlodipine (Amlodipine) 5 Mg Tablet 5 MG PO DAILY (Reported) Aspirin (Aspirin) 81 Mg Tablet 81 MG PO DAILY (Reported) Chlorthalidone (Chlorthalidone) 25 Mg Tablet 12.5 MG PO DAILY (Reported) Topiramate (Topiramate) 25 Mg Tablet 50 MG PO DAILY (Reported) Additional med instructions Resume home medications as before Followup Plan Disposition: Home Follow-up plan 1. Followup with primary care provider later this week 2. Followup with your gold leaf laborer to address the echocardiogram findings during this hospital as soon as possible. Discharge Diet: Low fat, Low Sodium, Heart Healthy Discharge Activity: No restrictions Patient Instructions Seek immediate medical attention if any new or worsening signs or symptoms occur. Time spent 35 min copies to: OTHER,PHYSICIAN Johnny Romero Mar 23, 2017 11:21
--- NOTE | 2017-03-23 11:29 | NUR ---
Social Work-discharge: Data:EMR reviewed. Pt is on day 4 of hospitalization for chest pain per H&P. Pt is medically stable for discharge. Pt resides at home and has been up independent in her room. No discharge needs identified. All updated and agreeable to plan. Assessment:Pt who is independent at baseline. Plan:Pt to discharge home today via POV. No discharge needs identified. All updated and agreeable to plan. PRACHI Perdomo
--- NOTE | 2017-03-23 11:35 | NUR ---
DISCHARGE Patient discharged at 1130, left with who will drive her home. Patient ambulated 100ft prior to discharge and denies shortness of breath, chest pain and nausea. Medications and follow up appointments reviewed and patient verbalized understanding. Care notes on chest pain provided. Patient has rash on chest, apparently from telemetry leads, cream applied and patient given cream for home. IV catheter removed intact, and patient states she has all her personal belongings.
== END 2017-03-23 11:40 | disposition home or self-care (01) | DRG 313 ==
LOC: SED 14:20 → INTOOBSV 16:09 → OBSVTOIN 16:09 → MPC 16:09
PROVIDERS: ADMIT Internal Medicine; ATTEND Internal Medicine
DX: R07.89 Other chest pain (principal); I50.20 Unspecified systolic (congestive) heart failure; Z68.42 Body mass index [BMI] 45.0-49.9, adult; Z79.82 Long term (current) use of aspirin; Z95.0 Presence of cardiac pacemaker; Z86.73 Personal history of transient ischemic attack (TIA), and cerebral infarction without residual deficits; Z86.718 Personal history of other venous thrombosis and embolism; E66.01 Morbid (severe) obesity due to excess calories; I10 Essential (primary) hypertension; G47.30 Sleep apnea, unspecified; R51 Headache